=== PATIENT | male | born 1955 | race Caucasian/White ===

== ENCOUNTER 2017-11-23 15:50 | Emergency (ER) | payer OTHER ==
[~2017-11-23] VITALS: Ht 177.8 cm; Wt 81.8 kg
[2017-11-23 16:05] VITALS: BP 180/74
--- NOTE | 2017-11-23 16:09 | NUR ---
Patient ambulated to bed 7. RN evaluating patient at bedside.
--- NOTE | 2017-11-23 16:10 | NUR ---
PT. BIB DUE TO URINARY RETENTION. PT. STATES " I HAVE NOT BEEN ABLE TO PEE TODAY AND IT HURTS SO BAD MY STOMACH ". PT. HAS 9/10 PAIN DESCRIBED PRESSURE AND SHARP PAIN. RR EVEN AND UNLABORED. ABD DISTENDED AND RIGID. UNABLE TO URINATE SINCE LAST NIGHT. DENIES N/V/D. BPH AND TAKING MEDICATIONS PRESCRIBED. AT BEDSIDE. WILL CONTINUE TO MONITOR. SAFETY PRECAUTIONS IMPLEMENTED.
--- NOTE | 2017-11-23 16:45 | NUR ---
LAKHANI CATH BAG EMPTIED; 1200ML OUTPUT. PT. STATES " I FEEL BETTER NOW , NO PAIN". ER MD BROWN NOTIFIED. WILL CONTINUE TO MONITOR.
--- NOTE | 2017-11-23 17:08 | NUR ---
PT. RESTING COMFORTABLY IN BED , RR EVEN AND UNLABORED. BED IN LOWEST POSITION. AT BEDSIDE. WILL CONTINUE TO MONITOR.
[2017-11-23 17:44] VITALS: BP 120/67
--- NOTE | 2017-11-23 17:44 | NUR ---
Patient discharged with v/s stable. Written and verbal after care instructions given and explained. Patient alert, oriented and verbalized understanding of instructions. Ambulatory with steady gait. All questions addressed prior to discharge. ID band removed. Patient advised to follow up with PMD. Rx of MACROBID CAPSULE given. Patient educated on indication of medication including possible reaction and side effects. Pt. Educatedon dillon cath care , return demonstration done by and patient. Opportunity to ask questions provided and answered.
== END 2017-11-23 17:44 | disposition home or self-care (01) ==
LOC: MED 15:50
DX: N40.1 Benign prostatic hyperplasia with lower urinary tract symptoms (principal); R33.8 Other retention of urine; Z88.0 Allergy status to penicillin
CPT/HCPCS: 51702; 81002; 99284